=== PATIENT | female | born 1945 | race Caucasian/White ===

== ENCOUNTER 2017-11-21 06:40 | Emergency (ER) | payer MEDICARE, OTHER ==
[2017-11-21] MEDS: ACETAMINOPHEN 500 MG TAB PO (07:51)
[2017-11-21] MEDS: IPRATROPIUM (NEB) 0.5 MG/2.5 ML AMP NEB (07:53)
[2017-11-21] MEDS: ALBUTEROL 0.083% (NEB) 2.5 MG/3 ML AMP NEB (07:53)
== END 2017-11-21 09:15 | disposition home or self-care (01) ==
LOC: E/R 06:40
DX: J11.1 Influenza due to unidentified influenza virus with other respiratory manifestations (principal); I10 Essential (primary) hypertension; R40.2142 Coma scale, eyes open, spontaneous, at arrival to emergency department; R40.2252 Coma scale, best verbal response, oriented, at arrival to emergency department; R40.2362 Coma scale, best motor response, obeys commands, at arrival to emergency department
CPT/HCPCS: 71010; 87400; 94664; 99284-25